=== PATIENT | male | born 1990 | race Hispanic/Latino ===

== ENCOUNTER 2024-02-13 23:40 | Emergency (ER) | payer SELFPAY ==
[~2024-02-13] VITALS: Ht 165.1 cm; Wt 57.2 kg
[2024-02-14 00:11] LABS: APPEARANCE,URINE CLEAR (CLEAR); BILIRUBIN,URINE NEGATIVE (NEGATIVE); COLOR,URINE YELLOW (YELLOW); GLUCOSE, URINE (UA) NEGATIVE (NEGATIVE); KETONES,URINE NEGATIVE (NEGATIVE); LEUKOCYTE ESTERASE ,URINE 75 Leu/uL (NEGATIVE); NITRATE,URINE NEGATIVE (NEGATIVE); OCCULT BLOOD,URINE NEGATIVE (NEGATIVE); PH,URINE 6.5 (5.0-8.0); PROTEIN,URINE 10 mg/dL (NEGATIVE); UROBILINOGEN,URINE 0.2 mg/dL (0.2-1.0)
[2024-02-14 00:12] LABS: ADD UA MICROSCOPIC YES
[2024-02-14 00:13] LABS: BACTERIA,URINE RARE /HPF (None Seen); MUCUS,URINE RARE LPF (None Seen)
[2024-02-14 00:25] LABS: CREATININE 1.1 mg/dL (0.5-1.3); POTASSIUM 3.9 mmol/L (3.5-5.1)
[2024-02-14 00:28] LABS: BASOPHILS # (AUTO) 0.02 K/uL (0.00-0.20); BASOPHILS % (AUTO) 0.2 % (0.0-5.0); EOSINOPHILS # (AUTO) 0.25 K/uL (0.00-0.70); HEMATOCRIT 48.2 % (42-54); IMMATURE GRANULOCYTE ABSOLUTE 0.03 K/uL (0-1); LYMPHOCYTES # (AUTO) 1.2 K/uL (1.0-4.8); LYMPHOCYTES % (AUTO) 14.7 % (21.0-51.0); MEAN CORPUSCULAR HEMOGLOBIN 28.9 pg (27.0-33.0); MEAN CORPUSCULAR HGB CONC 33.2 g/dL (32.0-36.0); MONOCYTES # (AUTO) 0.5 K/uL (0.1-1.0); MONOCYTES % (AUTO) 5.6 % (3.0-13.0); NEUTROPHILS # (AUTO) 6.3 K/uL (1.8-7.7); NEUTROPHILS % (AUTO) 76.1 % (40.0-77.0); PLATELET COUNT (AUTO) 306 K/uL (130-400); RED BLOOD CELL COUNT(AUTO) 5.54 MIL/uL (4.50-6.20); WHITE BLOOD COUNT (AUTO) 8.3 K/uL (4.8-10.8)
[2024-02-14 00:33] LABS: BILIRUBIN,DIRECT 0.2 mg/dL (0.0-0.3); TOTAL PROTEIN, SERUM 7.9 g/dL (6.0-8.3)
[2024-02-14] MEDS: 0.9%NACL 1000ML 1,000 ML IV ONE (01:31)
[2024-02-14] MEDS: PANTOPrazole 40 MG/VIAL IVP ONE (01:31)
[2024-02-14] MEDS: ondanSETRON 4MG INJ IVP ONE (01:31)
[2024-02-14] MEDS: cefTRIAXone 1G VIAL IVPB ONE (01:32)
[2024-02-14] MEDS ORDERED: DICY20TA2 PO (02:09)
[2024-02-14] MEDS ORDERED: NITR100C4 PO (02:09)
[2024-02-14] MEDS ORDERED: PANT20TA18 PO (02:09)
[2024-02-14] MEDS ORDERED: ONDA-243 PO (02:09)
[2024-02-14 02:26] VITALS: BP 122/75; PULSE 54; RESP 18; TEMP 98.2; O2SAT 100
== END 2024-02-14 02:43 | disposition home or self-care (01) ==
LOC: EDH 23:40
DX: K52.9 Noninfective gastroenteritis and colitis, unspecified (principal); N39.0 Urinary tract infection, site not specified; E87.8 Other disorders of electrolyte and fluid balance, not elsewhere classified
CPT/HCPCS: 99284; 80076; 80048; 83690; 85025; 87086; 81001; 36415; 96374; 96375; J7030; J0696; J2405; J2470